=== PATIENT | female | born 1995 | race Caucasian/White ===

== ENCOUNTER 2023-03-29 05:19 | Day surgery (SDC) | payer BC, OTHER ==
[2023-03-29 05:41] VITALS: BMI 25.7
[2023-03-29 06:20] LABS: Fetal Membranes Rupture No Membranes Rupture (No Rupture)
[2023-03-29] MEDS ORDERED: hydrALAZINE 20 MG/ML VIAL SLOW IVP PRN (06:52)
== END 2023-03-29 06:55 | disposition home or self-care (01) ==
LOC: CSHLD/OP 05:19
PROVIDERS: ATTEND Family Medicine
DX: Z03.71 Encounter for suspected problem with amniotic cavity and membrane ruled out (principal); O47.1 False labor at or after 37 completed weeks of gestation; Z3A.37 37 weeks gestation of pregnancy
CPT/HCPCS: 84112; 99282

== ENCOUNTER 2023-04-13 06:03 | Inpatient (IN) | payer OTHER ==
[2023-04-13 07:24] VITALS: BMI 26.3
[2023-04-13 07:54] LABS: Fetal Membranes Rupture RUPTURE DETECTED (No Rupture)
[2023-04-13] MEDS ORDERED: Lidocaine 1% (PF) 30 ML VIAL SC PRN (08:33)
[2023-04-13] MEDS ORDERED: Carboprost 250 MCG/ML AMP IM PRN (08:33)
[2023-04-13] MEDS ORDERED: Acetaminophen 500 MG TAB PO PRN (08:33)
[2023-04-13] MEDS ORDERED: Tranexamic Acid 1,000 MG/10 ML VIAL IVP PRN (08:33)
[2023-04-13] MEDS ORDERED: HYDROcodone/Acetaminophen 5/325 mg Tablet PO PRN (08:33)
[2023-04-13] MEDS ORDERED: hydrALAZINE 20 MG/ML VIAL SLOW IVP PRN (08:33)
[2023-04-13] MEDS ORDERED: Ondansetron PF 4 MG/2 ML Vial IVP PRN ×2 (08:33→16:01)
[2023-04-13] MEDS ORDERED: Ibuprofen 800 MG TAB PO PRN (08:33)
[2023-04-13] MEDS ORDERED: Promethazine HCl 25 MG/ML VIAL IM PRN ×2 (08:33→16:01)
[2023-04-13] MEDS ORDERED: Methylergonovine 0.2 MG/ML VIAL IM PRN (08:33)
[2023-04-13] MEDS ORDERED: fentaNYL 50 mcg/mL 1 mL Vial SLOW IVP PRN (08:33)
[2023-04-13] MEDS ORDERED: Misoprostol 200 MCG TAB PR PRN (08:33)
[2023-04-13] MEDS ORDERED: Diphenoxylate HCl/Atropine Tablet PO PRN (08:33)
[2023-04-13] MEDS ORDERED: Lactated Ringer's 1,000 ML IV SCH (08:45)
[2023-04-13] MEDS ORDERED: NS w/ Oxytocin 30 units 500 ML IV SCH ×3 (08:45)
[2023-04-13] MEDS ORDERED: NS w/ Oxytocin 30 units 500 ML ONE (08:53)
[2023-04-13 10:01] LABS: Hematocrit 35.8 % (34.9-44.5); Hemoglobin 11.7 g/dL (12.0-15.5); Mean Corpuscular HGB CONC 32.7 g/dL (32.0-36.0); Mean Corpuscular Hemoglobin 25.9 pg (27.0-33.0); Mean Corpuscular Volume 79.4 fl (81.6-98.3); Platelet Count 186 10x3/uL (130-400); Red Blood Cell (RBC) Count 4.51 10x6/uL (3.90-5.03); White Blood Cell (WBC) Count 8.2 10x3/uL (3.5-10.5)
[2023-04-13 10:02] LABS: Mean Platelet Volume 11.7 fl (7.4-10.4)
[2023-04-13 10:54] LABS: HBSAg Index 0.15 S/CO (0-0.99); Hep B Surf Ag - L&D Non-Reactive S/CO (NonReactive); Syphilis Antibody Nonreactive (Nonreactive); Syphilis Antibody Index 0.03 S/CO (<1.00 Non-Reactive)
[2023-04-13] MEDS ORDERED: fentaNYL/Ropivacaine Epidural 100 ML ONE (15:06)
[2023-04-13] MEDS ORDERED: Bupivacaine 0.25% HCL 30 ML VIAL ONE (16:00)
[2023-04-13] MEDS ORDERED: Naloxone HCl 0.4 mg/ml Vial IVP PRN ×2 (16:01)
[2023-04-13] MEDS ORDERED: Moisturizing Cream (Eucerin) 113 GM JAR TOP PRN (16:01)
[2023-04-13] MEDS ORDERED: Lactated Ringer's 500 ML IV PRN (16:01)
[2023-04-13] MEDS ORDERED: diphenhydrAMINE 50 MG/ML VIAL IVP PRN (16:01)
[2023-04-13] MEDS ORDERED: Acetaminophen 325 MG TAB PO PRN (16:01)
[2023-04-13] MEDS ORDERED: ePHEDrine Sulfate 50 MG/10 ML VIAL SLOW IVP PRN (16:01)
[2023-04-13] MEDS ORDERED: fentaNYL 2 mcg/Ropivacaine 0.2% Epidural 100 ML CADD EPIDURAL SCH (16:15)
[2023-04-13] MEDS ORDERED: Communication Order-Pharmacy FS SCH (16:15)
[2023-04-14] MEDS ORDERED: Benzocaine-Menthol 82.5 ML CAN TOP PRN (02:22)
[2023-04-14] MEDS ORDERED: Milk Of Magnesia 30 ML UDCUP PO PRN (02:22)
[2023-04-14] MEDS ORDERED: Lanolin Ointment 7 GM TUBE TOP PRN (02:22)
[2023-04-14] MEDS ORDERED: Boostrix 0.5 ML (Tdap) VIAL (>/=7 yrs of age) IM ONE (02:22)
[2023-04-14] MEDS ORDERED: diphenhydrAMINE 25 MG CAP PO PRN (02:22)
[2023-04-14] MEDS ORDERED: hydrALAZINE 20 MG/ML VIAL SLOW IVP PRN (02:22)
[2023-04-14] MEDS ORDERED: Bisacodyl 10 MG SUPP PR PRN (02:22)
[2023-04-14] MEDS ORDERED: NS w/ Oxytocin 30 units 500 ML IV SCH (02:22)
[2023-04-14] MEDS ORDERED: Ondansetron PF 4 MG/2 ML Vial IVP PRN (02:22)
[2023-04-14] MEDS ORDERED: HYDROcodone/Acetaminophen 5/325 mg Tablet PO PRN ×2 (02:22)
[2023-04-14] MEDS: Ibuprofen 800 MG TAB PO SCH ×3 (05:30→21:51)
[2023-04-14] MEDS: Ferrous Sulfate 325 MG TAB PO SCH ×2 (07:36→15:47)
[2023-04-14] MEDS: Prenatal Vitamin 1 TAB PO SCH (08:05)
[2023-04-14] MEDS: Docusate 100 MG CAP PO SCH ×2 (08:05→21:51)
[2023-04-15] MEDS: Ibuprofen 800 MG TAB PO SCH ×2 (05:37→15:12)
[2023-04-15 07:31] VITALS: BP 94/58; TEMP 98.8
[2023-04-15] MEDS: Docusate 100 MG CAP PO SCH (09:14)
[2023-04-15] MEDS: Prenatal Vitamin 1 TAB PO SCH (09:14)
== END 2023-04-15 19:50 | disposition home or self-care (01) | DRG 768 ==
LOC: CSHLD/OP 06:03 → CSHLD 08:44 → CSHPP 04-14 01:30
PROVIDERS: ADMIT Family Medicine; ATTEND Family Medicine
PROC: 10E0XZZ Delivery of Products of Conception, External Approach (ICD-10-PCS; principal; 2023-04-13)
PROC: 0UQG0ZZ Repair Vagina, Open Approach (ICD-10-PCS; 2023-04-13)
PROC: 0KQM0ZZ Repair Perineum Muscle, Open Approach (ICD-10-PCS; 2023-04-13)
PROC: 3E033VJ Introduction of Other Hormone into Peripheral Vein, Percutaneous Approach (ICD-10-PCS; 2023-04-13)
DX: O42.02 Full-term premature rupture of membranes, onset of labor within 24 hours of rupture (principal); Z37.0 Single live birth; O70.1 Second degree perineal laceration during delivery; Z3A.39 39 weeks gestation of pregnancy
CPT/HCPCS: 36415; 51702; 84112; 85027; 86780; 86850; 86900; 86901; 87340; 99285; J2590; S0020